=== PATIENT | female | born 2000 | race African-American/Black ===

== ENCOUNTER 2021-09-05 09:54 | Inpatient (IN) ==
[2021-09-05] MEDS ORDERED: CARBOPROST TROMETHAMINE 250 MCG/ML AMP IM PRN (10:27)
[2021-09-05] MEDS ORDERED: OXYTOCIN/LR 20 UNIT/1,000 ML BAG IV ONE ×3 (10:27→15:18)
[2021-09-05] MEDS ORDERED: TRANEXAMIC ACID 1,000 MG in SODIUM CHLORIDE 0.9% 100 ML IV PRN (10:27)
[2021-09-05] MEDS ORDERED: miSOPROStoL 200 MCG TABLET RECTAL PRN (10:27)
[2021-09-05] MEDS ORDERED: CITRIC ACID/SODIUM CITRATE 30 ML UDCUP PO ONE (10:27)
[2021-09-05] MEDS ORDERED: METHYLERGONOVINE 0.2 MG/1 ML AMP IM PRN (10:27)
[2021-09-05] MEDS ORDERED: LACTATED RINGERS 1,000 ML IV SCH ×2 (10:30→15:30)
[2021-09-05 10:46] LABS: Basophils % 0.3 % (0.0-0.8); Eosinophils % 0.5 % (0.00-10.9); Hematocrit 29.8 VOL% (35.7-47.0); Hemoglobin 9.1 GM/DL (12.0-16.0); Immature Granulocytes % 0.3 %; Immature Granulocytes Absolute 0.02 #; Lymphocytes # 1.3 10*3/uL (1.4-4.0); Lymphocytes % 20.5 % (21.3-54.2); Mean Corpuscular HGB Conc 30.5 GM/DL (32-36); Mean Corpuscular Volume 93.7 FL (87-102); Mean Platelet Volume 9.9 FL (9.6-12.0); Monocytes # 0.5 10*3/uL (0.11-0.8); Monocytes % 8.7 % (1.7-12.7); Neutrophils % 69.7 % (38.7-73.9); Platelet Count 272 T/CUMM (130-400); Red Blood Count 3.18 MC/CUMM (3.8-5.5); Red Cell Distribution Width 13.3 % (9.3-17.3); White Blood Count 6.1 T/CUMM (4-12)
[2021-09-05 11:03] LABS: Albumin 2.9 G/DL (3.4-5.0); Bilirubin,Total 0.4 MG/DL (0.20-1.00); Calcium 8.9 MG/DL (8.5-10.1); Osmolality,Calculated 274.4 MOS/KG (273-304); Total Protein 7.2 G/DL (6.4-8.2)
[2021-09-05] MEDS ORDERED: OXYTOCIN/LR 30 UNIT/1,000 ML BAG IV ONE (11:03)
[2021-09-05] MEDS ORDERED: OXYTOCIN 10 UNIT/ML VIAL IM ONE (11:03)
[2021-09-05] MEDS ORDERED: ceFAZolin 2,000 MG/50 ML DUPLEX IV ONE (11:04)
[2021-09-05] MEDS ORDERED: TRANEXAMIC ACID 1,000 MG/10 ML VIAL ONE (13:41)
[2021-09-05] MEDS ORDERED: SODIUM CHLORIDE 0.9% 0 ML IV ONE (13:41)
[2021-09-05] MEDS ORDERED: miSOPROStoL 200 MCG TABLET ONE (13:41)
[2021-09-05] MEDS ORDERED: CARBOPROST TROMETHAMINE 250 MCG/ML AMP IM ONE (13:42)
[2021-09-05] MEDS ORDERED: METHYLERGONOVINE 0.2 MG/1 ML AMP ONE (13:42)
[2021-09-05] MEDS ORDERED: buprenorphine HCL 0.3 MG/ML VIAL ONE (13:44)
[2021-09-05] MEDS ORDERED: ONDANSETRON 4 MG/2 ML VIAL ONE (13:44)
[2021-09-05] MEDS ORDERED: KETOROLAC 30 MG/1 ML VIAL ONE (13:44)
[2021-09-05] MEDS ORDERED: BUPIVACAINE SPINAL 0.75% 2 ML AMP SPINAL ONE (13:44)
[2021-09-05] MEDS ORDERED: FAMOTIDINE 20 MG/2 ML VIAL IV ONE (13:45)
[2021-09-05] MEDS ORDERED: PHENYLEPHRINE 1 MG/10 ML SYRINGE IV ONE ×2 (13:45→13:51)
[2021-09-05] MEDS ORDERED: GLYCOPYRROLATE 0.4 MG/2 ML VIAL ONE (14:33)
[2021-09-05 15:00] LABS: Cord Venous Blood HCO3 24.5 MMOL/L; Cord Venous Blood PO2 42.8
[2021-09-05 15:01] LABS: Bacteria,Urine Occasional /HPF (Few); Mucus,Urine Occasional /LPF (Occasional); RBC,Urine 2 /HPF (0-4)
[2021-09-05 15:02] LABS: Bilirubin,Urine Negative (Negative); Blood, Urine Negative (Negative); Glucose,Urine (UA) Negative (Negative); Ketones,Urine Trace mg/dL (Negative); Nitrite,Urine Negative (Negative); Protein,Urine Negative (Negative); Urine Appearance Clear (Clear); Urine Color Yellow (Yellow); Urine Specific Gravity 1.015 (1.001-1.035); Urine pH 7.5 (4.5-8.0)
[2021-09-05] MEDS ORDERED: MIDAZOLAM 2 MG/2 ML VIAL ONE (15:04)
[2021-09-05] MEDS ORDERED: ACETAMINOPHEN 325 MG TABLET PO PRN (15:18)
[2021-09-05] MEDS ORDERED: RHO(D) IMMUNE GLOBULIN 300 MCG SYRINGE IM ONE (15:18)
[2021-09-05] MEDS ORDERED: ONDANSETRON 4 MG/2 ML VIAL IV PRN (15:18)
[2021-09-05] MEDS ORDERED: diphenhydrAMINE 50 MG/1 ML VIAL IV PRN (15:25)
[2021-09-05] MEDS ORDERED: hydrOXYzine HCL 25 MG/1 ML VIAL IM PRN (15:25)
[2021-09-05] MEDS ORDERED: HYDROmorphone 1 MG/1 ML SYRINGE IV PRN (15:25)
[2021-09-05] MEDS ORDERED: ePHEDrine 50 MG/ML VIAL IV ONE (16:09)
[2021-09-05] MEDS ORDERED: ACETAMINOPHEN 500 MG TABLET PO SCH (19:30)
[2021-09-05] MEDS: KETOROLAC 30 MG/1 ML VIAL IV SCH (22:43)
[2021-09-05] MEDS: ACETAMINOPHEN 500 MG TABLET PO SCH (22:45)
[2021-09-05] MEDS: DOCUSATE SODIUM 100 MG CAPSULE PO SCH (22:46)
[2021-09-06 04:40] LABS: Basophils % 0.4 % (0.0-0.8); Eosinophils # 0.1 10*3/uL (0.0-0.87); Eosinophils % 0.8 % (0.00-10.9); Hematocrit 27.9 VOL% (35.7-47.0); Hemoglobin 8.5 GM/DL (12.0-16.0); Immature Granulocytes % 0.5 %; Immature Granulocytes Absolute 0.04 #; Lymphocytes # 1.4 10*3/uL (1.4-4.0); Lymphocytes % 17.7 % (21.3-54.2); Mean Corpuscular HGB Conc 30.5 GM/DL (32-36); Mean Corpuscular Volume 94.3 FL (87-102); Mean Platelet Volume 9.9 FL (9.6-12.0); Monocytes # 0.6 10*3/uL (0.11-0.8); Monocytes % 8.1 % (1.7-12.7); Neutrophils % 72.5 % (38.7-73.9); Platelet Count 240 T/CUMM (130-400); Red Blood Count 2.96 MC/CUMM (3.8-5.5); Red Cell Distribution Width 13.4 % (9.3-17.3); White Blood Count 7.6 T/CUMM (4-12)
[2021-09-06] MEDS: KETOROLAC 30 MG/1 ML VIAL IV SCH ×2 (04:46→16:28)
[2021-09-06] MEDS: ACETAMINOPHEN 500 MG TABLET PO SCH ×2 (04:49→16:28)
[2021-09-06] MEDS: MAGNESIUM HYDROXIDE SUSP 30 ML UDCUP PO PRN (08:45)
[2021-09-06] MEDS: DOCUSATE SODIUM 100 MG CAPSULE PO SCH ×2 (08:46→21:54)
[2021-09-06] MEDS: MULTIVITAMIN (PRENATAL) TABLET PO SCH (08:46)
[2021-09-06] MEDS: FERROUS SULFATE 325 MG TABLET PO SCH ×2 (08:46→21:54)
[2021-09-06] MEDS: SIMETHICONE CHEW 80 MG TABLET PO PRN (08:46)
[2021-09-06] MEDS: METOCLOPRAMIDE 10 MG TABLET PO SCH ×2 (08:46→21:43)
[2021-09-06] MEDS: IBUPROFEN 800 MG TABLET PO PRN ×2 (14:48→22:01)
[2021-09-07] MEDS: METOCLOPRAMIDE 10 MG TABLET PO SCH ×2 (04:30→08:40)
[2021-09-07 07:25] VITALS: BP 113/76
[2021-09-07] MEDS: SIMETHICONE CHEW 80 MG TABLET PO PRN (08:39)
[2021-09-07] MEDS: DOCUSATE SODIUM 100 MG CAPSULE PO SCH (08:39)
[2021-09-07] MEDS: MAGNESIUM HYDROXIDE SUSP 30 ML UDCUP PO PRN (08:39)
[2021-09-07] MEDS: MULTIVITAMIN (PRENATAL) TABLET PO SCH (08:39)
[2021-09-07] MEDS: FERROUS SULFATE 325 MG TABLET PO SCH (08:39)
[2021-09-07] MEDS: IBUPROFEN 800 MG TABLET PO PRN (11:43)
== END 2021-09-07 13:01 | disposition home or self-care (01) | DRG 539 ==
LOC: N.LD 09:54 → N.OB 20:15
PROVIDERS: ADMIT Obstetrics & Gynecology; ATTEND Obstetrics & Gynecology